=== PATIENT | male | born 1965 ===

== ENCOUNTER 2016-09-07 17:23 | Inpatient (IN) | payer MEDICARE, OTHER ==
[~2016-09-07] VITALS: Ht 170.2 cm; Wt 71.1 kg
[2016-09-07 20:09] VITALS: BP 106/79; PULSE 75; RESP 16
[2016-09-07] MEDS ORDERED: LORazepam 1 mg Tablet PO PRN (22:05)
[2016-09-07] MEDS ORDERED: Benzocaine-Menthol Lozenge 2/Pkg PO PRN (22:05)
[2016-09-07] MEDS ORDERED: Magnesium Hydroxide 10 mL Oral Concentration PO PRN (22:05)
[2016-09-07] MEDS ORDERED: Alum-Mag Hydrox-Simeth 30 mL Suspension PO PRN (22:05)
--- NOTE | 2016-09-08 02:14 | NUR ---
Nursing Admit Note Patient ELY 09/06/16 at 1803 on 72 hour hold in [facility], deemed danger to self and others. Reportedly patient has been Paranoid of "Crack heads" stealing prescription medications and throwing his belonging all over the place. Pt reports said complaints onset approximately one month earlier. Pt arrival via gurney at 1914,A+Ox3 with c/o of being detained when he is the one asking for help with property and belongings being violated. Reportedly patient had been calling Police at least daily with report of theft. "There watching me all the time. I counted and found that I couldn't even walk 52 feet, to feed my cat, without them coming and stealing from me." Pt pleasant paranoid of theft, medications, and being trapped in traffic congestion.
--- NOTE | 2016-09-08 05:40 | NUR ---
Arrived to unit at 1915. Out on unit watching TV and attending group. [id number]. Pt observed every 15 minutes as ordered.
[2016-09-08] MEDS ORDERED: Pantoprazole 20 mg ER24 Tablet PO SCH (08:30)
[2016-09-08] MEDS: HYDROcodone-APAP 10-325 mg PO PRN ×2 (08:39→14:14)
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
[2016-09-08] MEDS ORDERED: CYCL10TA9 PO (10:36)
[2016-09-08] MEDS ORDERED: HYDR-3740 PO (10:36)
[2016-09-08] MEDS ORDERED: RANI300T4 PO (10:36)
[2016-09-08] MEDS ORDERED: DIAZ10TA3 PO (10:36)
[2016-09-08] MEDS ORDERED: ASCO250T7 PO (10:38)
[2016-09-08] MEDS ORDERED: CALC600T20 PO (10:47)
[2016-09-08] MEDS ORDERED: MULT-1018 PO (10:51)
[2016-09-08] MEDS ORDERED: [UNRECOGNIZED DRUG - OTHER] PO (10:54)
[2016-09-08 11:41] VITALS: BP 112/73; PULSE 95; RESP 16
--- NOTE | 2016-09-08 14:14 | NUR ---
PRN Ativan ! mg with [place] 10/325 requested and given at 1420 for pain rated 8/10 and anxiety 7/10.
--- NOTE | 2016-09-08 17:25 | DRSVH ---
PROCEDURE: CT BRAIN WITHOUT CONTRAST ([id number]) INDICATIONS: 51 year-old male with remote traumatic brain injury, with new onset psychosis. TECHNIQUE: Noncontrast 4.5 mm thick angled axial sections acquired from the foramen magnum to the vertex, with c oronal reformats. COMPARISON: None. FINDINGS: Image quality: Excellent. CSF spaces: Basal cisterns are patent. No extra-axial fluid collections. Ventricles are normal in size and shape. Brain: No midline shift. No intracranial masses or hemorrhage. Douglas-white matter interface is norm al. Skull and face: Calvarium and visualized facial bones are intact, without suspicious lesions. Sinuses: Visualized sinuses and mastoids are clear. IMPRESSION: No acute intracranial abnormalities. Dictated by: Neel Meier M.D. on 09/08/2016 at 17:23 Approved by: Neel Meier M.D. on 09/08/2016 at 17:23
--- NOTE | 2016-09-08 18:40 | NUR ---
Observations 0700 to 1900 PT maintained control throughout the shift. Pt is labile, paranoid, friendly, anxious. Pt attended community activities on the unit and set goal to shower and figure out why he is here. Pt rated mood at 6/10. Pt is cooperative when approached by staff and seems to appreciate interaction. pt does agitate during the day but calms down talking to staff. Pt ate 75-100% of meals and was observed every 15 minutes as ordered.
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
[2016-09-08] MEDS: Calcium Carbonate (Oyster Shell) 500 mg Tablet PO SCH (21:09)
[2016-09-08] MEDS: risperiDONE 1 mg Tablet PO SCH (21:10)
--- NOTE | 2016-09-09 06:54 | NUR ---
Sleep Adequate sleep with over 8 hours. No noted distress or awakening per protocol checks.
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
[2016-09-09] MEDS: Calcium Carbonate (Oyster Shell) 500 mg Tablet PO SCH ×2 (08:07→17:44)
[2016-09-09] MEDS: Ascorbic Acid 500 mg Tablet PO SCH (08:07)
[2016-09-09] MEDS: HYDROcodone-APAP 10-325 mg PO PRN ×2 (08:08→20:57)
[2016-09-09] MEDS ORDERED: CALCIUM CARBONATE 1200 MG PO SCH (08:30)
[2016-09-09] MEDS ORDERED: [UNRECOGNIZED DRUG - OTHER] PO SCH (08:30)
[2016-09-09] MEDS ORDERED: Non-Formulary Medication (Multivitamin (Multi Vitamin Daily) 1 EACH) PO SCH (08:30)
--- NOTE | 2016-09-09 12:04 | NUR ---
Nursing Day Shift- S- "The new medication seems to really agree with me. I feel calmer, less tense, more at peace. I've been on Valium for years." O- Pt. was awake and dressed for breakfast. He appeared at ease, reported good sleep and requested Valium 10 mg and [place] 10/325. They were given at 0810. Pt. stated the above when asked how he was doing today. he has been social, and appropriate on the unit today. A- Improved mood and decreased anxiety. Chronic pain. P- Cont. BHTP
[2016-09-09 15:37] VITALS: BP 116/72; PULSE 78; RESP 16
--- NOTE | 2016-09-09 17:46 | PCM.PNPSY ---
Subjective Date of Service Sep 09, 2016 Subjective The patient reports that he is thinking about having someone stay on his property and potentially help take care of things. His friend, Cara, will be checking on things again but everything appeared locked according to her. He asked her to remove the fuses from one car and a module from his jeep in order to prevent them from being stolen. The jeep will be taken to her residence. The patient reports that he feels that the risperidone is helpful in making him feel calmer and he slept well. He maggy a relatively normal clock today with all the numbers and the appropriate position with the hands at 11:10 although he was unsure whether it was supposed to be 11:10 or 11:15. No side effects reported. Patient reviewed LISA handouts on side effects of risperidone and stated, "I think this is a good thing." When asked about his urine tox screen being positive for methamphetamine, he stated he believed his Gatorade crystals dias been adulterated with methamphetamine as it was "sludge like with ice that did not melt." Sleep: 8+ hours "okay" Appetite: "Pretty good" Suicidal and homicidal ideation: Denies Auditory hallucinations: Visual hallucinations: Other Psychotic Symptoms: Anxiety: 0/10 Depression: 0/10 Current Medications Current Medications Acetaminophen/ Hydrocodone Bitart 1 tablet Q8H PRN PO Last administered on 08:08; Admin Dose 1 TABLET; Start 09/07/16 at 22:05 Ascorbic Acid 500 mg DAILY PO Last administered on 09/09/16 08:07; Admin Dose 500 MG; Start 09/09/16 at 08:30 Calcium Carbonate 500 mg BIDWM PO Last administered on 09/09/16 08:07; Admin Dose 500 MG; Start 09/08/16 at 17:30 Cyclobenzaprine HCl 10 mg BID PO Last administered on 09/09/16 08:07; Admin Dose 10 MG; Start 09/08/16 at 08:30 Diazepam 10 mg Q12H PRN PO Last administered on 09/09/16 08:09; Admin Dose 10 MG; Start 09/08/16 at 01:17 Famotidine 20 mg HS PO Last administered on 09/08/16at 21:10; Admin Dose 20 MG; Start 09/08/16 at 21:00 Lorazepam 1 mg Q4H PRN PO Last administered on 09/08/16at 14:14; Admin Dose 1 MG; Start 09/07/16 at 22:05 Multivitamins/ Minerals Therapeutic 1 tablet DAILY PO Last administered on t 08:07; Admin Dose 1 TABLET; Start 09/09/16 at 08:30 Pantoprazole 20 mg DAILY PO Last administered on 09/08/16at 08:36; Admin Dose 20 MG; Start 09/08/16 at 08:30; Stop 09/08/16 at 16:31; Status DC Risperidone 0.5 mg HS PO Last administered on 09/08/16at 21:10; Admin Dose 0.5 MG; Start 09/08/16 at 21:00 Mental Status Exam Vital Signs Vital Signs Date Time Temp Pulse Resp B/P Pulse Ox O2 Delivery O2 Flow Rate FiO2 09/09/16 15:37 36.1 78 16 116/72 Appearance: Unkept Attitude: Pleasant, Cooperative Behavior: No unusual behavior Affect: Restricted Mood: Euthymic Thought Process/Associations: Logical/Sequential Speech Production: Normal Speech Rate: Normal Speech Articulation: Normal Thought Content: Suspicious Danger to Self/Suicidal Ideati: None Danger to Others: None Delusions: Paranoid (Endorses) Hallucinations: Auditory (Denies), Visual (Denies) Consciousness: Alert Orientation: Person, Place, Date, Situation Memory: Grossly Intact Estimate Intellectual Function: Average Attention/Concentration & Cogn: Grossly Intact Cognitive Testing Method: Other (clock drawing normal) Insight: Limited Judgement: Limited Mental Health Plan The patient is a 51-year-old male with a history of closed head injury and no history of mental health treatment. He presents with what appears to be worsening paranoia over the last 7-10 days with no objective signs of the intruders that he has been reporting. Of note, his urine tox screen is positive for methamphetamine as well as marijuana which are both likely impacting his mental health. The patient also could be suffering from the sequelae of closed head injury. CT scan of the head was negative. His clock drawing has normalized today. The patient is reporting that the low dose risperidone appears to be helping not just cognition but anxiety symptoms as well. [place] AXIS I: 1. 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 Amphetamine use disorder. 3. Marijuana use disorder. AXIS II: Deferred. AXIS III: See Past Medical History. AXIS IV: Moderate. AXIS V: Global Assessment of Functioning 30. Medications Acetaminophen hydrocodone 10-325 every 8 hours when necessary pain Cyclobenzaprine 10 mg twice daily Vitamin C 500 mg daily Multivitamin daily Calcium carbonate 500 mg twice daily Famotidine 20 mg nightly Risperidone 0.5 mg nightly Diazepam 10 mg every 12 hours when necessary spasm Lorazepam 1 mg by mouth every 4 hours when necessary anxiety Zolpidem 5-10 mg nightly when necessary insomnia Treatments 1. The patient will be provided a safe and secure environment and is currently denying suicidal or homicidal ideation and is in need of no additional staff monitoring. 2. The patient is encouraged to participate with group and milieu therapy. 3. The patient will meet with the treatment team on a daily basis to assess symptoms, side effects and response to treatment. 4. The patient will be continued on his outpatient medications with formulary substitutions. 5. Continue risperidone 0.5 mg nightly for psychosis. 6. The patient's ex-girlfriend will be checking on his property and pet while he is hospitalized. 7. Anticipated length of stay is 3-5 days. Herman Ornelas MD Sep 09, 2016 17:46
--- NOTE | 2016-09-09 18:43 | NUR ---
[facility] Day Shift Pt maintained behavioral control throughout the shift. Pt affect appears mostly flat, brighter when engaged with staff and peers. Pt spends most of the shift watching TV in the dining room and group room, or resting in his room. Pt is pleasant with staff and peers when active on the unit, but is not overly social. Pt attended community meeting in the AM and lightly participated in group activities throughout the shift. Pt attended all meals and ate approx 100% of all meals.
[2016-09-09] MEDS: risperiDONE 1 mg Tablet PO SCH (20:53)
--- NOTE | 2016-09-09 22:29 | NUR ---
NURSING NOTE [id number] Orientation= x3 Mood= "good" Affect= calm, pleasant Behavior= pt. visible this shift, watching TV with peers, interacting on and off, pleasant w/staff. He is med compliant. Thought processes= logical, linear, pt not endorsing AH/VH/SI/HI. He is futuristic and looking forward to discharge, however, was quite concerned about how he would get home once he is discharged. Discussed potential solutions w/the pt. PRNs [place] @ [facility] for 5/10 neck and back pain
--- NOTE | 2016-09-10 04:14 | NUR ---
OBSERVATIONS 1900 TO 0700 Pt was pleasant and cooperative with staff. Pt was somewhat isolative, spending much of waking hours (during this shift) in his room but was engaging when in common areas. Pt attended group wrap-up, stated that he accomplished goal of watching football today and that it was "a good dinner tonight." Pt rated mood 7/10. Pt noted asleep at 2300, waking once for 30 min at 0045. Q15 checks for safety completed as directed.
--- NOTE | 2016-09-10 06:19 | NUR ---
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 Patient was observed to be awaked briefly between, 0045 and 01:15, offered no complaints and returned to sleep on subsequent safety checks.
[2016-09-10] MEDS: Calcium Carbonate (Oyster Shell) 500 mg Tablet PO SCH ×2 (08:13→17:26)
[2016-09-10] MEDS: Ascorbic Acid 500 mg Tablet PO SCH (08:13)
[2016-09-10] MEDS: HYDROcodone-APAP 10-325 mg PO PRN ×2 (08:14→17:29)
--- NOTE | 2016-09-10 12:17 | NUR ---
Nursing Day Shift- S- "I feel good after taking my pain pill. Sometimes I take Ibuprofen at home in the morning to hold me over because I get 3 pills a day." O- Pt. was awake for breakfast. He appeared relaxed and expressed that the PRN [place] and Ibuprofen given this morning had been effective. He denied suicidal thoughts or anxiety today. He continues to express feeling improved well being and decreased anxiety with Risperdal. A- Pt. has had appropriate behavior and no apparent paranoia during his admission per observation and chart notes. P- Cont. TP
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
[2016-09-10] MEDS: risperiDONE 1 mg Tablet PO SCH (20:26)
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
--- NOTE | 2016-09-10 21:43 | NUR ---
NURSING NOTE [id number] Orientation= x3 Mood= "good" Affect= neutral Behavior= visible on unit, watching TV, selectively social w/peers, attended wrap-up group, med compliant Thought processes= logical, linear, denies SI/HI/AH/VH PRNs [place] @ 17:30 for 5/10 neck+head pain; brought pain down to a 3 Motrin @ 20:30 for 5/10 neck+ head pain
--- NOTE | 2016-09-11 01:59 | NUR ---
Observations 1900 to 0700 Pt affect is brighter than my last shift worked. Pt was in and out of his room for most of the evening. Pt watched TV and did attend wrap up group. Pt was polite and cooperative with both staff and peers. Pt requested a razor and and went to bed soon after he was finished shaving. Pt first appeared asleep at 22:00 and was observed every 15 minutes through the night as directed.
--- NOTE | 2016-09-11 06:10 | NUR ---
Nursing notes: shift commander Patient appears to be sleeping on safety checks during the night. No complaints voiced.
[2016-09-11] MEDS: Ascorbic Acid 500 mg Tablet PO SCH (08:26)
[2016-09-11] MEDS: Calcium Carbonate (Oyster Shell) 500 mg Tablet PO SCH ×2 (08:26→17:37)
[2016-09-11] MEDS: HYDROcodone-APAP 10-325 mg PO PRN ×2 (08:54→17:37)
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
[2016-09-11 10:00] VITALS: BP 105/64; PULSE 96; RESP 17
--- NOTE | 2016-09-11 11:06 | NUR ---
Airport Operations Specialist./ c.m. S.:"I'm fine. Everything is great." O.: met with pt. to discuss his discharge plan. Pt. denied SI/HI, denied AH/VH, denied paranoid/delusional thoughts. He denied depression or anxiety. He "worried a little about trip home". He was talking to his ex-g.f. about ferry ticket and how he would have to take busses to get there. A.: pt. is cooperative, pleasant, has a bright affect and a positive attitude. P.: monitor behavior, work on Safety plan and follow up; follow care plan.
--- NOTE | 2016-09-11 13:55 | NUR ---
Nursing Note [id number] Behavior S/O: Pt has a good appetite. Pt attending groups during the day. He has used the phone several times today. Pleasant & cooperative upon approach with staff & peers. Out on unit watching TV for part of the day. Conversation tracking clear & organized with normal rate & rhythm. Pain medications given as ordered for neck pain at a "6" on a scale of 1-10/10 the worst. Pt reports hydrocodone is helpful. A: No psychotic sx noted. P: Provide supportive environment. Monitor medications & effects.
--- NOTE | 2016-09-11 16:08 | PROG NOTE ---
[address] [address] PROGRESS NOTE PATIENT: EILEEN ELDRIDGE : 1965 MR#: [id number] ADMIT: 09/07/2016 JOB ID: [id number] DATE: 09/11/2016 CHIEF COMPLAINT: "I think my girlfriend has figured it out." This per patient report. HISTORY OF PRESENT ILLNESS: As stated above, the patient openly identified that his girlfriend has bought him a [employer] ticket and that they are planning on picking him up at [place]. He indicated that he had a good night of sleep and feels that his mood and his thoughts are stabilized. He denies any evidence of acute distress. OBJECTIVE: On mental status examination, he was bright, cooperative, interactive. Speech was of normal tone, frequency and volume. His mood was neutral. Affect was congruent. His thought process shows no evidence of racing thoughts, flight of ideas, looseness of association, disconnection of thought. Thought content: He denied any evidence of current suicidal or homicidal ideation. No evidence of active hallucinations, delusions. He was alert, oriented to person, place, time, situation. Attention and concentration intact. Insight and judgment are fair. PHYSICAL EXAMINATION: Vital signs are current. Temperature is 36.4, pulse 96, respirations 17, BP 108/64. MEDICATION REVIEW: Includes: 1. Risperdal 0.5 mg q.h.s. 2. [place] 1 tablet q.8 hours p.r.n. ASSESSMENT: AXIS I 1. Probable substance induced psychoses. 2. Psychotic disorder, not otherwise specified. 3. Methamphetamine use disorder. AXIS II Deferred. AXIS III Chronic pain. AXIS IV Stressors are noted for substance use. AXIS V Global assessment of functioning of current 40. PLANS: 1. Recommendations to discharge tomorrow. 2. Continuation of medications as noted.
[2016-09-11] MEDS: risperiDONE 1 mg Tablet PO SCH (20:07)
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
--- NOTE | 2016-09-11 20:27 | NUR ---
Obs Dayshift Pt is slightly anxious about DC'ing in the morning, talked w/ gf many times today and this evening getting the schedule and planning the transportation for tomorrow. Pt is engaged well, smiling and laughing w/ peers and staff. Appropriate, calm, linear, positive, appreciative, and helpful to peers. Good ADL's, Good meals
--- NOTE | 2016-09-12 01:29 | NUR ---
Observations 1900 to 0700 Pt affect is brighter than my last shift worked. Pt was in and out of his room for most of the evening. Pt watched TV and did attend wrap up group. Pt was polite and cooperative with both staff and peers. Pt was focused on getting his D/C planed finalized for the morning. Pt first appeared asleep at 23:00 and was observed every 15 minutes through the night as directed.
--- NOTE | 2016-09-12 05:56 | NUR ---
Sleep Adequate sleep of 7 hours. No noted distress or awakening per protocol checks.
[2016-09-12] MEDS: Calcium Carbonate (Oyster Shell) 500 mg Tablet PO SCH (08:05)
[2016-09-12] MEDS: Ascorbic Acid 500 mg Tablet PO SCH (08:05)
--- NOTE | 2016-09-12 08:55 | NUR ---
Nursing Discharge- Planned discharge to home today at 915, by bus ferry and private car. Pt. has slept 7 plus hours per shift report. He denied depression, SI, auditory or visual hallucinations. He expressed anxiety of 5/10 over discharge, and was able to identify te travel plans were his main stressor. Pt. eat 100% breakfast and expressed an understanding of the medication and follow up plans. His 72 hour ELY hold will lapse with discharge. Addendum: 09/12/16 at 1012 by BURKE MENSAH RN Pt. discharged by [facility] at 0915 as planned.
--- NOTE | 2016-09-12 09:00 | PCM.DIMED ---
Discharge Instructions Date of Service Sep 12, 2016 Dates of Hospitalization Sep 07, 2016 at 19:57 Discharge Diagnosis Discharge Diagnosis Substance Induced Psychosis Mehtamphetamine Use DO Diet No restrictions Activity No restrictions Irvin Albarado DO Sep 12, 2016 09:00
[2016-09-12] MEDS ORDERED: RISP1TAB90 PO (09:01)
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
--- NOTE | 2016-09-12 15:52 | NUR ---
Case Management/Counseling: S: "I need to get on the ferry and I don't want to be late." O: Met with patient. Patient slept 7+ hours last night per staff. He denies S/I and H/I. He also denies auditory and visual hallucinations. Depression is 0/10 and anxiety is 2/10. When asked his mood, patient stated, "Ready to get to [employer] [place]." Out-patient appointment: Dr. Santa Johnson, Primary Care Physician, 09/27/16 at 4:30pm. A: Patient is cooperative, hopeful, fair insight, fair judgment. P: Follow care plan, coordinate transportation and out-patient providers.
== END 2016-09-12 09:20 | disposition home or self-care (01) | DRG 897 ==
LOC: MHC 19:57
PROVIDERS: ADMIT Psychiatry & Neurology Psychiatry; ATTEND Psychiatry & Neurology Psychiatry
DX: F19.959 Other psychoactive substance use, unspecified with psychoactive substance-induced psychotic disorder, unspecified (principal); F15.90 Other stimulant use, unspecified, uncomplicated; F12.90 Cannabis use, unspecified, uncomplicated; G89.29 Other chronic pain